=== PATIENT | female | born 1955 | race Hispanic/Latino ===

== ENCOUNTER 2018-11-29 06:31 | Day surgery (SDC) | payer OTHER ==
[2018-11-27 17:09] LABS: Absolute Lymphocytes (CBC) 2.6 K/uL (0.7-4.9); Absolute Monocytes 0.6 K/uL (0.1-1.3); Absolute Neutrophil 4.3 K/uL (1.8-8.0); Basophils % 0.9 % (0-1.3); Eosinophils % 4.6 % (0-4.4); Hematocrit 44.5 % (36.0-45.0); Lymphocytes % 33.3 % (15.3-44.8); MPV 8.5 fL (7.6-11.3); RBC Red Blood Cell Count 5.33 M/uL (3.86-4.86)
[2018-11-27 17:10] LABS: Urine Appearance CLEAR; Urine Bilirubin NEGATIVE (NEG); Urine Blood NEGATIVE (NEG); Urine Color YELLOW; Urine Glucose NEGATIVE (NEG); Urine Protein NEGATIVE (NEG); Urine Specific Gravity 1.015 (1.005-1.030); Urine Urobilinogen 0.2 mg/dL (0.2-1.0)
[2018-11-27 17:11] LABS: Urine Microscopic Reflex NO UMIC
[2018-11-27 17:20] LABS: Protime INR 1.05
[2018-11-27 17:22] LABS: BUN Blood Urea Nitrogen 12 mg/dL (7-18); Bicarbonate 28 mmol/L (21-32); Glucose Level 114 mg/dL (74-106); Potassium 3.9 mmol/L (3.5-5.1); Sodium Level 143 mmol/L (136-145)
[2018-11-29] MEDS ORDERED: NA CHLORIDE 0.9% 100 ML IV ONE (07:23)
[2018-11-29] MEDS ORDERED: VASOPRESSIN 20 UNIT/ML VIAL ONE (07:24)
[2018-11-29] MEDS ORDERED: NA CHLORIDE 0.9% 1,000 ML ONE (07:24)
[2018-11-29] MEDS ORDERED: PROPOFOL 200 MG/20 ML VIAL IV ONE (07:27)
[2018-11-29] MEDS ORDERED: FENTANYL CITR 250 MCG/5 ML ONE (07:27)
[2018-11-29] MEDS ORDERED: MIDAZOLAM HCL 2 MG/2 ML INJ ONE (07:27)
[2018-11-29] MEDS ORDERED: LIDOCAINE 2% MPF 5 ML VIAL ONE (07:27)
[2018-11-29] MEDS ORDERED: ROCURONIUM 50 MG/5 ML VIAL IV ONE (07:28)
[2018-11-29] MEDS ORDERED: ONDANSETRON 4 MG/2 ML VIAL ONE (07:28)
[2018-11-29] MEDS ORDERED: Ringers Lactate 1,000 ML IV ONE ×2 (07:35→12:14)
[2018-11-29] MEDS ORDERED: CEFAZOLIN/SWI 1gm 1 GM/10 ML SYR ONE (07:44)
[2018-11-29] MEDS ORDERED: CEFAZOLIN 2 GM/20 ML SYR ONE (07:55)
[2018-11-29] MEDS: Ringers Lactate 1,000 ML IV ONE ×2 (08:57→09:02)
[2018-11-29] MEDS ORDERED: FENTANYL CITR 100 MCG/2 ML ONE (10:03)
[2018-11-29] MEDS ORDERED: MORPHINE 4 MG/ML SYR IV PRN (11:55)
[2018-11-29] MEDS ORDERED: PROMETHAZINE 25 MG TABLET PO PRN (11:56)
[2018-11-29] MEDS ORDERED: PROMETHAZINE 25 MG/ML VIAL IV PRN (11:56)
[2018-11-29] MEDS: MORPHINE 4 MG/ML SYR ONE ×2 (11:58→12:08)
[2018-11-29] MEDS ORDERED: Ringers Lactate 1,000 ML IV SCH (12:00)
[2018-11-29 15:01] VITALS: O2SAT 98
[2018-11-29 16:08] VITALS: BMI 27.9
[2018-11-29] MEDS: CEFAZOLIN/SWI 1gm 1 GM/10 ML SYR IV SCH (16:36)
[2018-11-29] MEDS: ACETAMINOPHEN 325 MG TABLET PO PRN (19:52)
[2018-11-30] MEDS: CEFAZOLIN/SWI 1gm 1 GM/10 ML SYR IV SCH (04:00)
[2018-11-30] MEDS: ACETAMINOPHEN 325 MG TABLET PO PRN ×2 (04:16→10:00)
[2018-11-30] MEDS ORDERED: CEFAZOLIN/SWI 1gm 1 GM/10 ML SYR ONE (04:18)
[2018-11-30 06:59] LABS: Absolute Monocytes 0.8 K/uL (0.1-1.3); Absolute Neutrophil 9.7 K/uL (1.8-8.0); Basophils % 0.2 % (0-1.3); Eosinophils % 0.7 % (0-4.4); Hematocrit 34.9 % (36.0-45.0); Lymphocytes % 15.6 % (15.3-44.8); MPV 8.5 fL (7.6-11.3); Monocytes % 6.2 % (3.3-12.3); RBC Red Blood Cell Count 4.21 M/uL (3.86-4.86)
[2018-11-30 10:50] VITALS: BP 119/58; TEMP 97
--- NOTE | 2018-12-10 00:54 | OP ---
Date of Procedure: 11/29/2018 Surgeon: Veronica Mccullough MD [employer] Ssis Developer: Xiomy Rodriguez. Preoperative Diagnoses: Stage III anterior wall prolapse; incomplete uterovaginal prolapse; rectocel e; posterior enterocele; perineal body defect; occult stress urinary incontinence; and no evidence of incontinence, however, urethral hypermobility is seen. Postoperative Diagnoses: Cystocele, stage III; uterovaginal prolapse; rectocele; posterior enterocel e; perineal body defect; and urethral hypermobility. Procedures Performed: 1.Anterior repair (cystocele repair) Uphold graft augmentation. 2.Bilateral sacrospinous ligament fixation, colpopexy. 3.Posterior wall repair (rectocele repair), posterior enterocele repair, perineorrhaphy. 4.Mid urethral sling (TVT-O), cystoscopy. Anesthesia: General. Estimated Blood Loss: 300. Urine Output: 150. Complications: No complications. Specimens: No specimens. Drains: Martínez catheter and vaginal packing. Findings: POP-Q is as follows: 0+, 4+, 5, 5, moderate, 8, 0, 0, -1. The POP-Q is very different fr om what was presumed preoperatively, and given the fact that the anterior wall had descended signific antly, proceeded with mid urethral sling placement for this patient. Indications: The patient is a 62-year-old female, presented originally with complaints of prolapse, mild vaginal discomfort, ability to empty completely, but urine flow abnormal, prolapse onset 3 years , worse in the past 6 months, had no prior repairs. No recurrent urinary tract infections. On exami nation, uterus appeared to be unremarkable with uterine descent. The leading defect was the anterior wall, perhaps the apex as well. With it, however, significant posterior defect seen as well. After discussing the expectant management with a pessary or with a surgical treatment, the patient desired to have surgical treatment. We discussed about the options of vaginal and laparoscopic surgery. We discussed the options of removal of the uterus versus preservation. There is no uterine pathology, so recommendation was to preserve the uterus to decrease the morbidity of the procedure and the amoun t of time raised it on removing this without any benefit at this current time. The patient understoo d that this does not increase the risk of her prolapse and after she consented. She was consented fo r a cystocele repair with Uphold graft or biological Xenform graft depending on the defects, bilatera l sacrospinous ligament fixation, colpopexy, rectocele repair, perineorrhaphy, and cystoscopy. Her u terine sampling was performed. No evidence of any hyperplasia or malignancy was seen. Her PVR was l ess than 50. She was emptying her bladder appropriately. Medical clearance was obtained for this pa tient and after consenting her for the surgical procedure, which is what exactly she wanted and did n ot want to use the pessary, then she was consented and brought to the OR. We also discussed the opti ons of possible mid urethral sling if needed, if there is significant hypermobility that I would do i t. The patient understood this, consented. We talked about the risks of bleeding, infection, perfor ation of the bowel, bladder, ureters, catheterization, erosion and exposure of the mesh, painful inte rcourse, fistula formation possibly urinary ongoing and leakage. Description Of Procedure: The patient was given 2 g of Ancef, taken back to the OR, placed in a supi ne fashion on the operating table. After general anesthesia was given, she was placed in a dorsal li thotomy position and a pelvic exam was performed. POP-Q is as dictated above. On determining the ap ical prolapse as the most significant part of the prolapse for this patient, I decided to perform a s ynthetic graft augmentation for holding the apex and the anterior wall all together superiorly in elodia ce. I also saw that the posterior defect was much more significant than what was realized, which was marked as BA -2. Here in the OR, it was 0. So, after relaxation, her apical defect made her entire prolapse to descend a lot further than what was demonstrated in the office for me. So, at this poin t, given the fact that the anatomical support of the bladder neck has been dropped, I decided to perf orm the mid urethral sling, which is a small part of this procedure in order to prevent any occult st ress urinary incontinence from reducing the patient's prolapse significantly as it appeared to be. Casimiro tony abdomen, vulva, vagina, and perineum were prepped and draped in a sterile fashion. Martínez was pl aced to drain the bladder. It was clamped and retracted superiorly. The first intent was to repair the posterior wall, then the suspension on the apex could be much more effectively left in place with out pulling on it or descending it as a consequence of repairing the posterior wall after the anterio r wall. So, once this was done, this decision was made. The lateral aspects of the vestibule were h eld with 2 Allis clamps. The posterior vaginal wall was held in the midline with 2 Allis clamps and dilute vasopressin 20 units mixed with 50 cc of normal saline, 20 units was injected on the perineal body at the vestibule and the posterior vaginal wall all the way to the level of the posterior fornix , where the posterior enterocele was seen. Then, a triangular skin incision was made with a scalpel on the perineum. Skin excised. The lateral aspects of the perineal body were well visualized. Ther e was definitely a perineal body defect, so the perineal body's lateral aspects were well dissected s o that the sutures can be placed, and at the level of the vestibule, the incision was carried into th e vaginal epithelium and then with the help of Metzenbaum scissors, the incision was extended all the way to the posterior fornix close to the posterior lip of the cervix. Then, on both sides, the rect ovaginal septum was dissected away from the vaginal epithelium and sub-epithelium laterally all the w ay to the sulci and even at the level of the perineal body, this was dissected. The posterior entero maria fernanda was isolated, , and reduced down with 2 pursestring 3-0 Vicryl sutures. Then, the post erior vaginal wall was laxed; however, there was no clear disruption in one point, so it was globally closed with interrupted 2-0 Vicryl from [id number] x3. Then, the perineal body was repaired using interrupted 2-0 Vicryls as well x3. Then, on the perineum, this was rebuild as well with another in terrupted 2-0 Vicryl sutures. Once all these sutures were placed, the sutures were tied systematical ly top down, and the vaginal epithelium was very slightly trimmed to refresh the edges. Then, less t krishnamurthy a half a centimeter of vaginal length was compromised by doing this. Then, the closure was condu cted with the help of a 2-0 Vicryl in a continuous running locked fashion all the way to the level of the vestibule here. The 3-0 Vicryl was taken in the subcutaneous fashion and subcuticular fashion t sidra the stitch inside the vestibule. Rectal exam was performed. No evidence of any trauma or foreign body in the rectum. Then, gloves we re changed. The bladder was drained with the Martínez and the Martínez clamped and retracted superiorly he re now. Starting at the level of the bladder neck, Allis clamps were placed to the level of the ante rior cul-de-sac. Dilute vasopressin 20 units was injected in the center and on both sides. An incis ion made with a 15 blade. The vaginal epithelium, sub-epithelium, and endopelvic fascia were all inc ised leaving a thick layer here trying to enter the vesicovaginal space. Once this was entered, the dissection was carried to reduce the bladder superiorly. There was an anterior enterocele as well. This was isolated and away from the cervix. The cervix was well exposed on both sides in [facility] center. Then, the lateral paravaginal spaces were dissected by taking down the bladder off both s ides. Once paravaginal space was entered, then the pararectal space was entered, ischial spine was p alpated, and the sacrospinous ligament was cleaned up and the coccygeus muscle. Once this was done b y sweeping medially and posteriorly towards the sacrum and performing the dissection on both sides, [facility] ligaments were both cleaned up. Here at this point, a 3-0 Vicryl was taken and the anterior enter ocele was reduced by using two 3-0 Vicryl pursestring sutures. Then, from [id number], in the vesic ovaginal space, the tissues were brought together from side to side, then went down to get the Uphold graft. The bites were taken on the sacrospinous ligament 2 cm medial and posterior to the ischial s pine, first on the left side, then on the right side without any problems. Then, I was able to attac h three 2-0 PDS sutures, one in the center through the connective tissue of the cervix and then both laterally as well around the level of the cervix to tack the Uphold graft to the proximal part. Once this was done, then the sutures were passed through Uphold and were held. The mesh was tensioned. The ties in the center and both sides of the PDS were tied and cut. Then, the 2-0 Vicryl suture was taken and continuous running closure in a horizontal mattress fashion was conducted on the anterior w all. After one-third of it was closed, then I tensioned the anterior mesh completely. The point C w as at -7. Once this was obtained, it was not too tight and did not have a band. Then, I went on to cut the strings attaching the dilators to the mesh and the plastic sheath and the dilator along with the suture were pulled out, first on the right side, then on the left side, leaving the apex at the p lace that I thought was appropriate between the ischial spines at the level of the ischial spine or s lightly above. Once this was done, closure of the vaginal epithelium and sub-epithelium w ere done. Cystoscopy was performed actually after the sling. A mid urethral injection was given with the vasopressin. Two Allis clamps were placed on either side of the mid urethra. A 15 blade used for making a 1 cm incision here. Then, under the vaginal sub-e pithelium and the fascia, dissection was carried at a 45-degree angle to the horizontal and vertical planes towards the ipsilateral shoulder, hugging the inferior pubic ramus entering the obturator spac e and perforating the obturator membrane with the Metzenbaum scissors. Then, the scissors were opene d up to open up the tract for the sling and then brought out. Dissection was first performed on the right, then on the left. Once everything was prepared, the exit points were marked 2 cm lateral, 1 c m above the level of the horizontal line dropped at the level of the external meatus. Then, the TVT- O kit was opened up. The wing guide was placed along the same dissection path that was created to pl dana the sling. After passing through the obturator membrane, this was left there and the spike with plastic sheath and the metal spike were loaded and taken along the wing guide, passed all the way pas t the obturator membrane and the wing guide was removed. The handle was rotated in a proper fashion such that the exit point was at the marked point on the groin and about a centimeter and half inferio r to the tendon. Similar dissection was performed on the opposite side and the sling was passed. Wi ng guide was removed. The plastic sheath was left in place and the pin was removed as well. Both th e dilators were pulled out through the skin and cut. Plastic sheath and mesh were held. Metzenbaum scissors were used to tension the sling underneath the urethra. After proper tensioning, not too tig ht or loose, the sheaths were pulled out. Then, inspection of the sling showed there was appropriate placement without it being too tight or too loose either. Then, the vaginal epithelium was closed w ith the help of a 3-0 Vicryl in a continuous running locked fashion. Then, the skin incisions were c losed with Dermabond. Martínez removed. Cystoscopy performed with a 17-Gabonese sheath, 30-degree lens n ormal saline. Both ureteric orifices were well visualized, strong jets of urine from both, no eviden ce of any foreign body into the bladder. No evidence of any tumors either. I went on to look on the lateral aspects of the internal meatus and there was no evidence of any trauma from the sling. The entire bladder was normal. The scope was pulled out after draining the bladder. Martínez was replaced. Vaginal packing was placed. Rectal exam was done again into the rectum at the level of the sacrosp inous ligaments and they were fine. No evidence of any sutures or trauma to the rectum. All the ins truments were removed. Instrument, needle, and sponge counts x3 were done and were correct at the en d of the case. EBL was 300, 150 urine output. The patient was recovered from anesthesia in the OR and taken to PACU in stable condition. ANDRÉS/AARON Voice ID: [id number] Report ID: [id number]
== END 2018-11-30 12:30 | disposition home or self-care (01) ==
LOC: OR 06:31 → 2ND-WC 14:54 → OR 11-30 12:30
PROVIDERS: ATTEND Obstetrics & Gynecology
PROC: 0JUC0JZ Supplement of Pelvic Region Subcutaneous Tissue and Fascia with Synthetic Substitute, Open Approach (ICD-10-PCS; 2018-11-29)
PROC: 0JQC0ZZ Repair Pelvic Region Subcutaneous Tissue and Fascia, Open Approach (ICD-10-PCS; 2018-11-29)
PROC: 0WQN0ZZ Repair Female Perineum, Open Approach (ICD-10-PCS; 2018-11-29)
PROC: 0USG7ZZ Reposition Vagina, Via Natural or Artificial Opening (ICD-10-PCS; 2018-11-29)
PROC: 0TSD0ZZ Reposition Urethra, Open Approach (ICD-10-PCS; 2018-11-29)
PROC: 0UQF0ZZ Repair Cul-de-sac, Open Approach (ICD-10-PCS; principal; 2018-11-29 07:30)
DX: N81.2 Incomplete uterovaginal prolapse (principal); N39.3 Stress incontinence (female) (male); N36.41 Hypermobility of urethra; N95.2 Postmenopausal atrophic vaginitis
CPT/HCPCS: 36415; 80048; 81003; 85025; 85610; 85730; 86850; 86900; 86901; J0690; J2250; J2405; J2550; J2704; J3010; J7030